=== PATIENT | female | born 2000 | race African-American/Black ===

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

== ENCOUNTER 2020-06-17 20:40 | Emergency (ER) | payer BC, SELFPAY ==
--- NOTE | 2020-06-17 21:21 | RAD ---
XR Chest Pa Lat STANDARD HISTORY: Dyspnea, positive covid Test on 05/31/2020 and negative on 06/11/2020 COMPARISON: None FINDINGS: The heart size is normal. The lungs are well expanded without focal areas of consolidation, pneumothorax or pleural effusions. IMPRESSION: No radiographic evidence of acute cardiopulmonary process.
== END 2020-06-17 21:34 | disposition home or self-care (01) ==
LOC: MADERS 20:40
DX: U07.1 COVID-19 (principal)
CPT/HCPCS: 71046